=== PATIENT | female | born 1960 | race Caucasian/White ===

== ENCOUNTER → 2016-06-03 | Outpatient (CLI) | payer OTHER ==
--- NOTE | 2016-06-06 10:20 | MM ---
Reason for exam: screening (asymptomatic). Last mammogram was performed 1 year and 4 months ago. History: Patient history of other cancer. Physical Findings: A clinical breast exam by your physician is recommended on an annual basis and results should be correlated with mammographic findings. MG Screening Mammo w CAD Bilateral CC and MLO view(s) were taken. Prior study comparison: February 06, 2015, bilateral MG screening mammo w CAD. September 06, 2013, mammogram, performed at [facility]. There are scattered fibroglandular densities. No significant changes when compared with prior studies. ASSESSMENT: Benign, BI-RAD 2 RECOMMENDATION: Routine screening mammogram of both breasts in 1 year.
== END ==
LOC: RADMAMWWP 08:29
PROVIDERS: ATTEND Obstetrics & Gynecology
DX: Z12.31 Encounter for screening mammogram for malignant neoplasm of breast (principal)

== ENCOUNTER → 2018-12-28 | Outpatient (CLI) | payer OTHER ==
--- NOTE | 2018-12-31 09:19 | MM ---
Reason for exam: screening (asymptomatic). Last mammogram was performed 1 year and 1 month ago. History: Patient is postmenopausal and history of other cancer. Physical Findings: A clinical breast exam by your physician is recommended on an annual basis and results should be correlated with mammographic findings. MG 3D Screening Mammo W/Cad Bilateral CC and MLO view(s) were taken. Prior study comparison: November 24, 2017, bilateral MG 3d screening mammo w/cad. June 03, 2016, bilateral MG screening mammo w CAD. There are scattered fibroglandular densities. No suspicious abnormality. No significant changes when compared with prior studies. ASSESSMENT: Negative, BI-RAD 1 RECOMMENDATION: Routine screening mammogram of both breasts in 1 year.
== END | disposition home or self-care (01) ==
LOC: RADMAMWWP 09:30
PROVIDERS: ATTEND Obstetrics & Gynecology
DX: Z12.31 Encounter for screening mammogram for malignant neoplasm of breast (principal)
CPT/HCPCS: 77063; 77067

== ENCOUNTER → 2019-12-31 | Outpatient (CLI) | payer OTHER ==
--- NOTE | 2020-01-01 11:37 | MM ---
Reason for exam: screening (asymptomatic). Last mammogram was performed 1 year ago. History: Patient is postmenopausal and history of other cancer. Physical Findings: A clinical breast exam by your physician is recommended on an annual basis and results should be correlated with mammographic findings. MG 3D Screening Mammo W/Cad Bilateral CC and MLO view(s) were taken. Prior study comparison: December 28, 2018, bilateral MG 3d screening mammo w/cad. November 24, 2017, bilateral MG 3d screening mammo w/cad. The breast tissue is heterogeneously dense. This may lower the sensitivity of mammography. Focal asymmetry upper left breast is stable. No significant changes when compared with prior studies. ASSESSMENT: Benign, BI-RAD 2 RECOMMENDATION: Routine screening mammogram of both breasts in 1 year.
== END | disposition home or self-care (01) ==
LOC: RADMAMWWP 13:14
PROVIDERS: ATTEND Obstetrics & Gynecology
DX: Z12.31 Encounter for screening mammogram for malignant neoplasm of breast (principal)
CPT/HCPCS: 77063; 77067

== ENCOUNTER → 2020-04-15 | Outpatient (CLI) | payer OTHER ==
[2020-04-15 16:48] LABS: Basophils % (A) 1 %; Eosinophils # (A) 0.2 k/uL (0-0.7); Eosinophils % (A) 4 %; HCT 39.1 % (34.0-46.0); HGB 13.4 gm/dL (11.4-16.0); Lymphocytes # (A) 1.6 k/uL (1.0-4.8); Lymphocytes % (A) 30 %; MCH 30.6 pg (25.0-35.0); MCHC 34.2 g/dL (31.0-37.0); MCV 89.5 fL (80.0-100.0); Mean Platelet Volume 8.7; Monocytes # (A) 0.3 k/uL (0-1.0); Monocytes % (A) 6 %; Neutrophils # (A) 3.2 k/uL (1.3-7.7); Neutrophils % (A) 58 %; Platelet Count 200 k/uL (150-450); RBC 4.36 m/uL (3.80-5.40); RDW 12.6 % (11.5-15.5); WBC 5.4 k/uL (3.8-10.6)
== END | disposition home or self-care (01) ==
LOC: LABPAT 15:39
PROVIDERS: ATTEND Obstetrics & Gynecology
DX: Z01.818 Encounter for other preprocedural examination (principal)
CPT/HCPCS: 36415; 85025; 93005

== ENCOUNTER 2020-04-23 08:27 | Day surgery (SDC) | payer OTHER ==
[2020-04-20 12:43] VITALS: BMI 30.9
[~2020-04-23 08:27] MED LIST: DEXAMETHASONE SOD PHOSPHATE 4 MG/ML 1 ML VIAL IV ONE; HYDROmorphone 0.5 MG/0.5 ML SYRINGE IVP PRN; LACTATED RINGERS 1,000 ML IV SCH; LIDOCAINE 1% (10MG/ML) FOR IV START INTRADERMA PRN; MIDAZOLAM 2 MG/2 ML VIAL IV PRN; ONDANSETRON 4 MG/2 ML VIAL IVP ONE; Pre Op ABX Message 1 EACH MISC MISCELLANE ONE
[2020-04-23 08:57] VITALS: RESP 16; TEMP 98.3
--- NOTE | 2020-04-23 09:31 | P.HPOB ---
History of Present Illness H&P Date: 04/23/20 Chief Complaint: BHARAT-2 60-year-old presents for loop electrocautery excision procedure. Colposcopy revealed BHARAT-2 on her ECC. Review of Systems All systems: negative Constitutional: Denies chills, Denies fever Eyes: denies blurred vision, denies pain Ears, nose, mouth and throat: Denies headache, Denies sore throat Cardiovascular: Denies chest pain, Denies shortness of breath Respiratory: Denies cough Gastrointestinal: Denies abdominal pain, Denies diarrhea, Denies nausea, Denies vomiting Genitourinary: Denies dysuria, Denies hematuria Musculoskeletal: Denies myalgias Integumentary: Denies pruritus, Denies rash Neurological: Denies numbness, Denies weakness Psychiatric: Denies anxiety, Denies depression Endocrine: Denies fatigue, Denies weight change Past Medical History Additional Past Medical History / Comment(s): sinus problems History of Any Multi-Drug Resistant Organisms: None Reported Past Surgical History: Tubal Ligation Additional Past Surgical History / Comment(s): left oophorectomy, D & C, colonoscopy Past Anesthesia/Blood Transfusion Reactions: Postoperative Nausea & Vomiting (PONV) Additional Past Anesthesia/Blood Transfusion Reaction / Comment(s): problem one time w/being unable to urinate after surgery-had to go to an ER for, very claustrophobic-can't have face mask, wants nasal cannula instead Smoking Status: Former smoker - Past Family History Mother Family Medical History: No Reported History Medications and Allergies Home Medications Medication Instructions Recorded Confirmed Type Biotin 10,000 mcg PO DAILY 04/20/20 04/23/20 History Cholecalciferol [Vitamin D3 (25 25 mcg PO DAILY 04/20/20 04/23/20 History Mcg = 1000 Iu)] Cyanocobalamin (Vitamin B-12) 1,000 mcg PO DAILY 04/20/20 04/23/20 History [Vitamin B-12] Nimitz-3 Fatty Acids/Fish Oil [Fish 1 each PO DAILY 04/20/20 04/23/20 History Oil 1,000 mg Softgel] Zinc 50 mg PO DAILY 04/20/20 04/23/20 History Allergies Allergy/AdvReac Type Severity Reaction Status Date / Time Sulfa (Sulfonamide Allergy Dyspnea Verified 04/23/20 08:57 Antibiotics) neomycin AdvReac Rash/Hives Verified 04/23/20 08:57 Exam Osteopathic Statement: *. No significant issues noted on an osteopathic structural exam other than those noted in the History and Physical/Consult. Vital Signs Temp Pulse Resp BP Pulse Ox 04/23/20 08:51 98.3 F 57 L 16 139/66 97 Intake and Output 04/22/20 04/23/20 04/23/20 22:59 06:59 14:59 Other: Weight 80.4 kg Heart: Regular rate and rhythm Lungs: Clear to auscultation bilaterally Abdomen: Soft, nontender Extremities: Negative Homans sign Assessment and Plan (1) BHARAT II (cervical intraepithelial neoplasia II) Current Visit: Yes Status: Acute Code(s): N87.1 - MODERATE CERVICAL DYSPLASIA SNOMED Code(s): 456142518 Plan: 1. Loop electrocautery excision procedure
[2020-04-23] MEDS ORDERED: PROPOFOL 10 MG/ML 20 ML VIAL IV ONE (10:14)
[2020-04-23] MEDS ORDERED: fentaNYL (PF) 50 MCG/ML 2 ML AMP ONE (10:14)
[2020-04-23] MEDS ORDERED: MIDAZOLAM 2 MG/2 ML VIAL ONE (10:14)
[2020-04-23] MEDS ORDERED: LIDOCAINE 1% INJ 10MG/ML (20 ML MDV) ONE (10:14)
[2020-04-23] MEDS ORDERED: KETOROLAC 15 MG/ML 1 ML VIAL ONE (10:14)
[2020-04-23] MEDS ORDERED: FERRIC SUBSULFATE (MONSELS) JAR TOPICAL ONE (10:38)
--- NOTE | 2020-04-23 10:58 | P.OP ---
Date of Procedure: 04/23/20 Preoperative Diagnosis: 1. BHARAT II Postoperative Diagnosis: 1. BHARAT II Procedure(s) Performed: LEEP Anesthesia: MAC Surgeon: Jeanette Frausto Estimated Blood Loss (ml): 1 IV fluids (ml): 400 Urine output (ml): 50 Pathology: other (cervical cone in pieces) Condition: stable Disposition: PACU Description of Procedure: Patient taken the operating room where general anesthesia was obtained without difficulty. She is prepped and draped in normal sterile fashion dorsal lithotomy position, legs placed in candycane stirrups. Bladder was drained of all urine. A coated bivalve speculum was placed in the vagina and hooked up to suction. A 2 cm loop was used to start making the cone biopsy. The cervix was flush with the apex of the vagina so this was done with some difficulty but I did get a good sample in a few pieces. The ball cautery was used to cauterize the crater left in the cervix. Monsel's was placed. Hemostasis achieved. All instruments removed from the vagina. Patient tolerated procedure well. Sponge and instrument counts correct 2. She was taken to recovery in stable condition.
[2020-04-23 12:18] VITALS: BP 157/81; PULSE 53
== END 2020-04-23 12:52 | disposition home or self-care (01) ==
LOC: OR 08:27
PROVIDERS: ATTEND Obstetrics & Gynecology
DX: N87.1 Moderate cervical dysplasia (principal); R94.31 Abnormal electrocardiogram [ECG] [EKG]; F40.240 Claustrophobia; Z88.2 Allergy status to sulfonamides; Z88.1 Allergy status to other antibiotic agents; Z87.09 Personal history of other diseases of the respiratory system; Z98.51 Tubal ligation status; Z90.721 Acquired absence of ovaries, unilateral; Z98.890 Other specified postprocedural states; Z91.89 Other specified personal risk factors, not elsewhere classified; Z87.891 Personal history of nicotine dependence
CPT/HCPCS: 57522; 88307; J2250; J1100; J2405; J2001; J3010; J1885; J2704; J1170

== ENCOUNTER → 2021-02-12 | Outpatient (CLI) | payer OTHER ==
--- NOTE | 2021-02-15 12:53 | MM ---
Reason for exam: screening (asymptomatic). Last mammogram was performed 1 year and 1 month ago. History: Patient is postmenopausal and history of other cancer. Physical Findings: A clinical breast exam by your physician is recommended on an annual basis and results should be correlated with mammographic findings. MG 3D Screening Mammo W/Cad Bilateral CC and MLO view(s) were taken. Prior study comparison: December 31, 2019, bilateral MG 3d screening mammo w/cad. December 28, 2018, bilateral MG 3d screening mammo w/cad. The breast tissue is heterogeneously dense. This may lower the sensitivity of mammography. There is no discrete abnormality. No significant changes when compared with prior studies. ASSESSMENT: Negative, BI-RAD 1 RECOMMENDATION: Routine screening mammogram of both breasts in 1 year.
== END | disposition home or self-care (01) ==
LOC: RADMAMWWP 14:39
PROVIDERS: ATTEND Obstetrics & Gynecology
DX: Z12.31 Encounter for screening mammogram for malignant neoplasm of breast (principal)
CPT/HCPCS: 77063; 77067

== ENCOUNTER → 2022-09-02 | Outpatient (CLI) | payer OTHER ==
--- NOTE | 2022-09-05 09:28 | MM ---
Reason for Exam: Screening (asymptomatic). Last mammogram was performed 1 year(s) and 7 month(s) ago. Patient History: Menarche at age 13. First Full-Term at age 15. Left ovary removed at age 44. Postmenopausal. Risk Values: Rita 5 year model risk: 1.0%. NCI Lifetime model risk: 4.4%. Prior Study Comparison: 12/28/2018 Bilateral Screening Mammogram, [facility]. 12/31/2019 Bilateral Screening Mammogram, [facility]. 02/12/2021 Bilateral Screening Mammogram, [facility]. Tissue Density: The breast tissue is heterogeneously dense. This may lower the sensitivity of mammography. Findings: Analyzed By CAD. There is no suspicious group of microcalcifications or new suspicious mass in either breast. Overall Assessment: Benign, BI-RAD 2 Management: Screening Mammogram of both breasts in 1 year. . Patient should continue monthly self-breast exams. A clinical breast exam by your physician is recommended on an annual basis. This exam should not preclude additional follow-up of suspicious palpable abnormalities. Note on Rita scores and lifetime risk: 1. A Rita score greater than 3% is considered moderate risk. If this is the case, consider specialist referral to assess eligibility for a risk reducing agent. 2. If overall lifetime risk for the development of breast cancer is 20% or higher, the patient may qualify for future screening with alternating mammogram and breast MRI. Electronically signed and approved by: Mazin Holm M.D. Radiologis
== END | disposition home or self-care (01) ==
LOC: RADMAMWWP 14:31
PROVIDERS: ATTEND Obstetrics & Gynecology
DX: Z12.31 Encounter for screening mammogram for malignant neoplasm of breast (principal); Z78.0 Asymptomatic menopausal state
CPT/HCPCS: 77063; 77067

== ENCOUNTER → 2023-09-27 | Outpatient (CLI) | payer OTHER ==
--- NOTE | 2023-10-05 12:49 | MM ---
Reason for Exam: Screening (asymptomatic). Last mammogram was performed 1 year(s) and 1 month(s) ago. Patient History: Menarche at age 13. First Full-Term at age 15. Left ovary removed at age 44. Postmenopausal. Risk Values: Rita 5 year model risk: 1.1%. NCI Lifetime model risk: 4.3%. Prior Study Comparison: 12/31/2019 Bilateral Screening Mammogram, [facility]. 02/12/2021 Bilateral Screening Mammogram, [facility]. 09/02/2022 Bilateral MG 3D screening mammo w/cad, [facility]. Tissue Density: There are scattered areas of fibroglandular density. Findings: Analyzed By CAD. The pattern is symmetrical. No significant interval change. No suspicious groups of microcalcifications, spiculated or lobular masses, architectural distortion or other secondary signs of malignancy are mammographically apparent. Overall Assessment: Benign, BI-RAD 2 Management: Screening Mammogram of both breasts in 1 year. A negative mammogram report should not preclude additional follow up of suspicious palpable abnormalities. Patient should continue monthly self breast exam. A clinical breast exam by your physician is recommended on an annual basis and results should be correlated with mammographic findings. Note on Rita scores and lifetime risk: 1. A Rita score greater than 3% is considered moderate risk. If this is the case, consider specialist referral to assess eligibility for a risk reducing agent. 2. If overall lifetime risk for the development of breast cancer is 20% or higher, the patient may qualify for future screening with alternating mammogram and breast MRI. Electronically signed and approved by: Colby Awad D.O. Radiologis
== END | disposition home or self-care (01) ==
LOC: RADMAMWWP 16:25
PROVIDERS: ATTEND Obstetrics & Gynecology
DX: Z12.31 Encounter for screening mammogram for malignant neoplasm of breast (principal); Z78.0 Asymptomatic menopausal state
CPT/HCPCS: 77063; 77067